=== PATIENT | female | born 1980 | race Caucasian/White ===

== ENCOUNTER → 2020-10-13 | Outpatient (CLI) | payer OTHER ==
[2020-10-13 14:16] LABS: HEMOGLOBIN 15.4 gm/dl (12.3-15.3); RED BLOOD COUNT 4.56 M/UL (4.00-5.10); WHITE BLOOD COUNT 5.6 K/UL (4.5-11.0)
[2020-10-13 14:55] LABS: BUN/CREATININE RATIO 18 (0-10)
[2020-10-14 09:14] LABS: HBSAG SCREEN Negative (Negative); HEP B CORE AB, TOT Negative (Negative)
[2020-10-14 11:14] LABS: HCV AB <0.1 (0.0-0.9)
[2020-10-17 17:10] LABS: QUANTIFERON MITOGEN VALUE 3.38 IU/mL (.); QUANTIFERON NIL VALUE 0.08 IU/mL (.); QUANTIFERON TB1 AG VALUE 0.07 IU/mL (.); QUANTIFERON TB2 AG VALUE 0.07 IU/mL (.); QUANTIFERON-TB GOLD PLUS Negative (Negative)
== END ==
LOC: LAB 11:38
PROVIDERS: Internal Medicine
DX: D89.89 Other specified disorders involving the immune mechanism, not elsewhere classified (principal); R76.8 Other specified abnormal immunological findings in serum; M25.50 Pain in unspecified joint; Z79.899 Other long term (current) drug therapy; M32.9 Systemic lupus erythematosus, unspecified
CPT/HCPCS: 36415; 80053; 81001; 82570; 84156; 85025; 86704; 86803; 87340

== ENCOUNTER 2021-06-04 15:32 | Emergency (ER) | payer OTHER ==
[2021-06-04 16:52] LABS: HEMOGLOBIN 13.2 gm/dl (12.3-15.3); RED BLOOD COUNT 3.84 M/UL (4.00-5.10); WHITE BLOOD COUNT 7.7 K/UL (4.5-11.0)
[2021-06-04 17:13] LABS: BUN/CREATININE RATIO 19 (0-10)
[2021-06-04] MEDS ORDERED: ZOFRAN ODT 4 MG4 MG SL (19:39)
[2021-06-04] MEDS ORDERED: IMODIUM CAP 2 MG2 MG PO (19:39)
== END 2021-06-04 23:10 | disposition home or self-care (01) ==
LOC: ER1 15:32
PROVIDERS: Physician Assistant
DX: R10.9 Unspecified abdominal pain (principal); R11.2 Nausea with vomiting, unspecified; R07.9 Chest pain, unspecified; R10.811 Right upper quadrant abdominal tenderness; I10 Essential (primary) hypertension; Z88.2 Allergy status to sulfonamides; Z90.49 Acquired absence of other specified parts of digestive tract
CPT/HCPCS: 71045; 80053; 82150; 82550; 82553; 83605; 83690; 83874; 84484; 85025; 87040; 93005; 96374; 96375; 99284; J2270; J2405; J2550; J7030; Q9967

== ENCOUNTER → 2021-06-28 | Outpatient (CLI) | payer OTHER ==
[~2021-06-28] MED LIST: IMODIUM CAP 2 MG2 MG PO; ZOFRAN ODT 4 MG4 MG SL
== END ==
LOC: RAD 06:43
DX: K22.4 Dyskinesia of esophagus (principal); R11.10 Vomiting, unspecified
CPT/HCPCS: 74221

== ENCOUNTER 2021-07-09 11:04 | Inpatient (IN) | payer OTHER ==
[~2021-07-09] VITALS: Ht 162.6 cm; Wt 90.7 kg
[2021-07-09 11:53] LABS: HEMOGLOBIN 14.6 gm/dl (12.3-15.3); RED BLOOD COUNT 4.55 M/UL (4.00-5.10); WHITE BLOOD COUNT 8.9 K/UL (4.5-11.0)
[2021-07-09 12:21] LABS: BUN/CREATININE RATIO 20 (0-10)
[2021-07-09] MEDS ORDERED: WELLBUTRIN XL300 MG PO (17:48)
[2021-07-09] MEDS ORDERED: BRINTELLIX20 MG PO (17:49)
[2021-07-09] MEDS ORDERED: KLONOPIN0.5 MG PO (17:49)
[2021-07-09] MEDS ORDERED: LEVOCETIRIZINE D5 MG PO (17:50)
[2021-07-09] MEDS ORDERED: ADDERALL XR 2525 MG PO (17:50)
[2021-07-09] MEDS ORDERED: PREDNISONE2.5 MG PO (17:51)
[2021-07-09] MEDS ORDERED: SUMATRIPTAN SU100 MG PO (17:52)
[2021-07-09] MEDS ORDERED: BENLYSTA INJ (17:53)
[2021-07-09] MEDS ORDERED: BUSPIRONE HCL15 MG PO (17:54)
[2021-07-09] MEDS ORDERED: LEFLUNOMIDE20 MG PO (17:54)
[2021-07-09] MEDS ORDERED: PROTONIX40 MG PO (17:54)
[2021-07-09] MEDS ORDERED: DRISDOL1250 MCG PO (17:55)
[2021-07-09] MEDS ORDERED: VALSARTAN80 MG PO (17:55)
[2021-07-09] MEDS ORDERED: HYDROCHLOROTHIA25 MG PO (17:55)
[2021-07-09] MEDS ORDERED: FOLIC ACID 1 MG1 MG PO (17:56)
[2021-07-09] MEDS ORDERED: AMLODIPINE BESY10 MG PO (17:56)
[2021-07-09] MEDS ORDERED: FLONASE ALLER15.8 ML (17:57)
[2021-07-09] MEDS ORDERED: PLAQUENIL200 MG PO (17:57)
[2021-07-09] MEDS ORDERED: EXCEDRIN MIGRA1 EACH PO (17:58)
[2021-07-09] MEDS ORDERED: ARTHRITIS PAIN100 GM TOP (17:58)
[2021-07-09] MEDS ORDERED: ZADITOR5 ML EYEBOTH (18:00)
[2021-07-09] MEDS ORDERED: ANTACID-ANTIGA1 EACH PO (18:04)
[2021-07-10 06:36] LABS: WHITE BLOOD COUNT 8.1 K/UL (4.5-11.0)
[2021-07-10 06:41] LABS: RED BLOOD COUNT 3.86 M/UL (4.00-5.10)
[2021-07-10 06:42] LABS: HEMOGLOBIN 12.1 gm/dl (12.3-15.3)
[2021-07-10 07:14] LABS: BUN/CREATININE RATIO 20 (0-10)
[2021-07-11 07:32] LABS: HEMOGLOBIN 10.5 gm/dl (12.3-15.3); WHITE BLOOD COUNT 6.3 K/UL (4.5-11.0)
[2021-07-11 07:36] LABS: RED BLOOD COUNT 3.41 M/UL (4.00-5.10)
[2021-07-11 07:52] LABS: BUN/CREATININE RATIO 10 (0-10)
[2021-07-12 06:45] LABS: HEMOGLOBIN 10.1 gm/dl (12.3-15.3); RED BLOOD COUNT 3.22 M/UL (4.00-5.10)
[2021-07-12 06:50] LABS: WHITE BLOOD COUNT 4.6 K/UL (4.5-11.0)
[2021-07-12 07:37] LABS: BUN/CREATININE RATIO 6 (0-10)
[2021-07-13 06:51] LABS: HEMOGLOBIN 10.1 gm/dl (12.3-15.3); RED BLOOD COUNT 3.3 M/UL (4.00-5.10)
[2021-07-13 06:52] LABS: WHITE BLOOD COUNT 3.2 K/UL (4.5-11.0)
[2021-07-13 07:27] LABS: BUN/CREATININE RATIO 4 (0-10)
[2021-07-14 06:28] LABS: HEMOGLOBIN 10.3 gm/dl (12.3-15.3); RED BLOOD COUNT 3.35 M/UL (4.00-5.10); WHITE BLOOD COUNT 3.9 K/UL (4.5-11.0)
[2021-07-14 06:48] LABS: BUN/CREATININE RATIO 4 (0-10)
--- NOTE | 2021-07-14 07:05 | NUR ---
CALLED DR. ZAVALETA THE [employer] AND INFORMED HIM PATIENT HAD A CRITICAL LAB POTASSIUM OF 3.0. DR. ZAVALETA ORDERED JUST TO FOLLOW THE POTASSIUM PROTOCOL AND REPLACE PATIENTS POTASSIUM. WILL CONTINUE TO MONITOR.
== END 2021-07-14 17:31 | disposition home or self-care (01) | DRG 440 ==
LOC: ER1 11:04 → CDU 15:12 → MED SURG 4 15:12
PROVIDERS: Internal Medicine; Nurse Practitioner; Physician Assistant; Physician Assistant Medical; ADMIT Family Medicine
DX: K85.30 Drug induced acute pancreatitis without necrosis or infection (principal); E87.6 Hypokalemia; E83.42 Hypomagnesemia; M32.9 Systemic lupus erythematosus, unspecified; Z20.822 Contact with and (suspected) exposure to COVID-19; K22.2 Esophageal obstruction; E86.0 Dehydration; I10 Essential (primary) hypertension; E78.5 Hyperlipidemia, unspecified; T38.0X5A Adverse effect of glucocorticoids and synthetic analogues, initial encounter; F41.9 Anxiety disorder, unspecified; Z98.890 Other specified postprocedural states; Z90.49 Acquired absence of other specified parts of digestive tract; Z79.899 Other long term (current) drug therapy; Z88.2 Allergy status to sulfonamides; Z82.49 Family history of ischemic heart disease and other diseases of the circulatory system; Z82.0 Family history of epilepsy and other diseases of the nervous system; Z79.52 Long term (current) use of systemic steroids
CPT/HCPCS: 36415; 71045; 80048; 80053; 80061; 80076; 82150; 82550; 82553; 83605; 83690; 83735; 83874; 84132; 84484; 84703; 85025; 85027; 87040; 93005; 96374; 96375; 96376; 99285; C9113; J1170; J1650; J2270; J2405; J3475; J7030; Q9967; U0002

== ENCOUNTER → 2021-08-18 | Outpatient (CLI) | payer OTHER ==
[~2021-08-18] VITALS: Ht 160 cm; Wt 88.9 kg
[~2021-08-18] MED LIST changes: +ADDERALL XR 2525 MG PO; +AMLODIPINE BESY10 MG PO; +ANTACID-ANTIGA1 EACH PO; +ARTHRITIS PAIN100 GM TOP; +BENLYSTA INJ; +BRINTELLIX20 MG PO; +BUSPIRONE HCL15 MG PO; +DRISDOL1250 MCG PO; +EXCEDRIN MIGRA1 EACH PO; +FLONASE ALLER15.8 ML; +FOLIC ACID 1 MG1 MG PO; +HYDROCHLOROTHIA25 MG PO; +KLONOPIN0.5 MG PO; +LEFLUNOMIDE20 MG PO; +LEVOCETIRIZINE D5 MG PO; +PLAQUENIL200 MG PO; +PREDNISONE2.5 MG PO; +PROTONIX40 MG PO; +SUMATRIPTAN SU100 MG PO; +VALSARTAN80 MG PO; +WELLBUTRIN XL300 MG PO; +ZADITOR5 ML EYEBOTH
== END ==
LOC: GENOP 10:36 → EROP 10:36
DX: U07.1 COVID-19 (principal); Z23 Encounter for immunization; I10 Essential (primary) hypertension
CPT/HCPCS: M0247; Q0247

== ENCOUNTER → 2021-09-15 | Outpatient (CLI) | payer OTHER ==
[2021-09-15 16:23] LABS: HEMOGLOBIN 13.4 gm/dl (12.3-15.3); RED BLOOD COUNT 4.8 M/UL (4.00-5.10); WHITE BLOOD COUNT 6.4 K/UL (4.5-11.0)
[2021-09-15 16:35] LABS: BUN/CREATININE RATIO 20 (0-10)
== END ==
LOC: LAB 15:51
PROVIDERS: Nurse Practitioner Family
DX: K85.90 Acute pancreatitis without necrosis or infection, unspecified (principal)
CPT/HCPCS: 80053; 82150; 83690; 85025

== ENCOUNTER 2021-10-14 08:01 | Inpatient (IN) | payer OTHER ==
[~2021-10-14] VITALS: Ht 162.6 cm; Wt 88.5 kg
[~2021-10-14 08:01] MED LIST changes: -ZADITOR5 ML EYEBOTH; +ZADITOR5 ML OU
[2021-10-14 08:40] LABS: HEMOGLOBIN 13.2 gm/dl (12.3-15.3); RED BLOOD COUNT 4.53 M/UL (4.00-5.10); WHITE BLOOD COUNT 7.7 K/UL (4.5-11.0)
[2021-10-14 09:10] LABS: BUN/CREATININE RATIO 24 (0-10)
[2021-10-14] MEDS ORDERED: ARAVA20 MG PO (13:24)
[2021-10-14] MEDS ORDERED: CYCLOBENZAPRINE5 MG PO (13:24)
[2021-10-14] MEDS ORDERED: TRINTELLIX PO (13:24)
[2021-10-14] MEDS ORDERED: MUPIROCIN22 GM TOP (13:25)
[2021-10-14] MEDS ORDERED: ULTRAM50 MG PO (13:25)
[2021-10-15 04:22] LABS: HEMOGLOBIN 12.3 gm/dl (12.3-15.3); RED BLOOD COUNT 4.31 M/UL (4.00-5.10); WHITE BLOOD COUNT 6.2 K/UL (4.5-11.0)
[2021-10-15 04:51] LABS: BUN/CREATININE RATIO 24 (0-10)
[2021-10-16 02:48] LABS: HEMOGLOBIN 10.8 gm/dl (12.3-15.3)
[2021-10-16 02:49] LABS: RED BLOOD COUNT 3.74 M/UL (4.00-5.10); WHITE BLOOD COUNT 4.6 K/UL (4.5-11.0)
[2021-10-16 03:09] LABS: BUN/CREATININE RATIO 15 (0-10)
[2021-10-17 00:11] LABS: IMMUNOGLOBULIN G, QN, SERUM 657 mg/dL (586-1602)
[2021-10-17 04:03] LABS: BUN/CREATININE RATIO 7 (0-10)
[2021-10-17] MEDS ORDERED: KLONOPIN TAB 00.5 MG PO (10:57)
--- NOTE | 2021-10-17 17:51 | NUR ---
1400 - Patient stated she tolerated diet well at lunch.
== END 2021-10-17 19:12 | disposition home or self-care (01) | DRG 440 ==
LOC: ER1 08:01 → M/S 12:29 → CDU 12:29 → M/S 13:14
PROVIDERS: Physician Assistant; ADMIT Family Medicine
DX: K85.90 Acute pancreatitis without necrosis or infection, unspecified (principal); E87.6 Hypokalemia; M32.9 Systemic lupus erythematosus, unspecified; Z20.822 Contact with and (suspected) exposure to COVID-19; I10 Essential (primary) hypertension; E78.5 Hyperlipidemia, unspecified; K21.9 Gastro-esophageal reflux disease without esophagitis; R74.01 Elevation of levels of liver transaminase levels; F41.9 Anxiety disorder, unspecified; E83.42 Hypomagnesemia; M19.90 Unspecified osteoarthritis, unspecified site; G43.909 Migraine, unspecified, not intractable, without status migrainosus; F32.A Depression, unspecified; F90.9 Attention-deficit hyperactivity disorder, unspecified type; F10.10 Alcohol abuse, uncomplicated; Z98.891 History of uterine scar from previous surgery; Z90.49 Acquired absence of other specified parts of digestive tract; Z88.2 Allergy status to sulfonamides; Z82.49 Family history of ischemic heart disease and other diseases of the circulatory system; Z80.7 Family history of other malignant neoplasms of lymphoid, hematopoietic and related tissues; Z82.0 Family history of epilepsy and other diseases of the nervous system; Z80.9 Family history of malignant neoplasm, unspecified; Z84.89 Family history of other specified conditions; F03.90 Unspecified dementia, unspecified severity, without behavioral disturbance, psychotic disturbance, mood disturbance, and anxiety
CPT/HCPCS: 36415; 71045; 80048; 80053; 80061; 81001; 82550; 82553; 82784; 82787; 83690; 83735; 84132; 84484; 84703; 85025; 93005; 96374; 96375; 96376; 99285; C9113; J1170; J1885; J2270; J2405; J7120; Q9967; U0002

== ENCOUNTER → 2022-01-13 | Outpatient (CLI) | payer OTHER ==
[~2022-01-13] MED LIST changes: +ARAVA20 MG PO; +CYCLOBENZAPRINE5 MG PO; +KLONOPIN TAB 00.5 MG PO; +MUPIROCIN22 GM TOP; +TRINTELLIX PO; +ULTRAM50 MG PO
[2022-01-13 15:54] LABS: HEMOGLOBIN 13.7 gm/dl (12.3-15.3); RED BLOOD COUNT 4.55 M/UL (4.00-5.10); WHITE BLOOD COUNT 6.1 K/UL (4.5-11.0)
[2022-01-13 16:22] LABS: BUN/CREATININE RATIO 17 (0-10)
[2022-01-15 16:10] LABS: COMPLEMENT C3, SERUM 179 mg/dL (82-167); COMPLEMENT C4, SERUM 46 mg/dL (12-38)
[2022-01-16 14:10] LABS: DSDNA CRITHIDIA LUCILIAE IFA Positive (Negative); DSDNA CRITHIDIA LUCILIAE TITER 1:40 (Neg<1:10)
== END ==
LOC: LAB 15:03
PROVIDERS: Internal Medicine
DX: M32.9 Systemic lupus erythematosus, unspecified (principal); R53.83 Other fatigue; M25.549 Pain in joints of unspecified hand; R76.9 Abnormal immunological finding in serum, unspecified; Z51.81 Encounter for therapeutic drug level monitoring
CPT/HCPCS: 80053; 82570; 84156; 85025; 86160; 86255